=== PATIENT | female | born 1965 | race Caucasian/White ===

== ENCOUNTER → 2022-01-25 | Outpatient (CLI) | payer SELFPAY ==
--- NOTE | 2022-01-26 03:36 | MR ---
EXAMINATION TYPE: MR lumbar spine wo con DATE OF EXAM: 01/25/2022 COMPARISON: None HISTORY: Lower back pain, left side with BLE radiculopathy. Multiplanar multiecho imaging of the lumbar spine performed without contrast. There is a few millimeter anterior subluxation of L4 in relation L5. There is mild narrowing of disc spaces in the lumbar spine. No compression fracture. There is no lumbar paraspinal mass. Sacroiliac j oints are intact. There is facet arthropathy and mild disc bulging with some lateral recess stenosis at L4-5. No focal bone destruction. There is some mild narrowing of the right side L4-5 neural forame n due to disc bulging and subluxation. IMPRESSION: There is a first-degree L4-5 spondylolisthesis. No spondylolysis. There is lateral recess stenosis an d mild relative spinal stenosis at L4-5 due to subluxation and facet arthropathy. No fracture seen. R ight-sided neural foraminal L4-5 narrowing.
== END | disposition home or self-care (01) ==
LOC: RADMRIMAIN 12:46
DX: M43.16 Spondylolisthesis, lumbar region (principal); M48.061 Spinal stenosis, lumbar region without neurogenic claudication; M46.96 Unspecified inflammatory spondylopathy, lumbar region
CPT/HCPCS: 72148